=== PATIENT | female | born 1955 | race Caucasian/White ===

== ENCOUNTER 2017-07-09 08:46 | Emergency (ER) | payer MEDICAID ==
[~2017-07-09] VITALS: Ht 152.4 cm; Wt 70.0 kg
[~2017-07-09 08:46] MED LIST: ALBU2.5V13 IH; ATOR20TA65 PO; LISI-186 PO; METF10002 PO
[2017-07-09] MEDS ORDERED: ALBUTEROL (0.083%) 2.5MG/3ML NEB HHN STA (09:17)
[2017-07-09] MEDS ORDERED: METHYLPREDNISOLONE SOD SUCC 125 MG/2 ML VIAL IV STA (09:17)
[2017-07-09] MEDS ORDERED: IPRATROPIUM BROMIDE (0.02%) 0.5MG/2.5ML NEB HHN STA (09:17)
[2017-07-09] MEDS ORDERED: MAGNESIUM 1 G PREMIX 100 ML IV ONE (09:30)
[2017-07-09] MEDS ORDERED: SODIUM CHLORIDE 0.9% 1,000 ML IV ONE (09:30)
[2017-07-09] MEDS ORDERED: MAGNESIUM 2 G PREMIX 50 ML IV ONE (09:45)
[2017-07-09 10:11] LABS: CHLORIDE 105 mEq/L (98-107)
[2017-07-09 10:13] LABS: HEMATOCRIT. 34.5 % (36.0-48.0); HEMOGLOBIN. 10.9 g/dL (12.0-16.0); MEAN CORPUSCULAR HEMOGLOBIN 22.9 pg (28.0-32.0); MEAN CORPUSCULAR VOLUME 72.5 fL (81.0-99.0); MEAN PLATELET VOLUME 7.3 fl (7.4-10.4); PLATELET 431 x1000/uL (130-400); RED BLOOD CELL COUNT 4.75 mill/uL (4.2-5.4); RED CELL DISTRIBUTION WIDTH 17.9 % (11.6-14.6)
[2017-07-09 10:19] LABS: TROPONIN I < 0.02 ng/mL (0.00-0.04)
[2017-07-09] MEDS ORDERED: IPRATROPIUM/ALBUTEROL 0.5-3(2.5)MG/3ML NEB HHN ONE ×2 (10:30→12:15)
[2017-07-09 10:54] LABS: PLATELET ESTIMATE SLIGHTLY INCREASED
[2017-07-09 15:49] VITALS: BP 126/79
== END 2017-07-09 16:12 | disposition home or self-care (01) ==
LOC: ER 08:46
DX: J45.901 Unspecified asthma with (acute) exacerbation (principal); I10 Essential (primary) hypertension; E78.00 Pure hypercholesterolemia, unspecified; E11.9 Type 2 diabetes mellitus without complications
CPT/HCPCS: 36415; 71045; 80048; 83880; 84484; 85025; 93005; 94640; 96365; 96375; 99285; J2930; J3475; J7030; J7611; J7620; Z7610

== ENCOUNTER 2017-07-11 20:59 | Inpatient (IN) | payer MEDICAID ==
[~2017-07-11] VITALS: Ht 152.9 cm; Wt 84.4 kg
[~2017-07-11 20:59] MED LIST changes: +METF-416 PO; -METF10002 PO
[2017-07-12] MEDS ORDERED: IPRATROPIUM BROMIDE (0.02%) 0.5MG/2.5ML NEB HHN STA (00:02)
[2017-07-12] MEDS ORDERED: ALBUTEROL (0.083%) 2.5MG/3ML NEB HHN STA (00:02)
[2017-07-12] MEDS ORDERED: METHYLPREDNISOLONE SOD SUCC 125 MG/2 ML VIAL IV STA (00:02)
[2017-07-12] MEDS ORDERED: MAGNESIUM 2 G PREMIX 50 ML IV ONE (00:15)
[2017-07-12 00:41] LABS: HEMATOCRIT. 32.5 % (36.0-48.0); HEMOGLOBIN. 10.3 g/dL (12.0-16.0); MEAN CORPUSCULAR HEMOGLOBIN 22.8 pg (28.0-32.0); MEAN CORPUSCULAR VOLUME 71.8 fL (81.0-99.0); MEAN PLATELET VOLUME 7.5 fl (7.4-10.4); PLATELET 412 x1000/uL (130-400); RED BLOOD CELL COUNT 4.53 mill/uL (4.2-5.4); RED CELL DISTRIBUTION WIDTH 18.1 % (11.6-14.6)
[2017-07-12 00:54] LABS: CHLORIDE 104 mEq/L (98-107)
[2017-07-12 01:31] LABS: PLATELET ESTIMATE NORMAL
[2017-07-12] MEDS ORDERED: SODIUM CHLORIDE 0.9% 1,000 ML IV SCH (02:51)
[2017-07-12 08:40] VITALS: BP 128/87
[2017-07-12] MEDS ORDERED: ACETAMINOPHEN 325MG TABLET PO PRN (10:00)
[2017-07-12] MEDS ORDERED: IPRATROPIUM/ALBUTEROL 0.5-3(2.5)MG/3ML NEB INH PRN (10:00)
[2017-07-12] MEDS ORDERED: HYDROCODONE/ACETAMINOPHEN 5/325MG TABLET PO PRN (10:00)
[2017-07-12] MEDS ORDERED: ONDANSETRON HCL 4MG/2ML INJ IV PRN (10:00)
[2017-07-12] MEDS ORDERED: DIPHENHYDRAMINE 50MG/ML VIAL IV PRN (10:00)
[2017-07-12] MEDS ORDERED: CLONIDINE 0.1MG TABLET PO PRN (10:00)
[2017-07-12] MEDS: METHYLPREDNISOLONE SOD SUCC 40 MG/ML VIAL IV SCH ×2 (11:18→17:04)
[2017-07-12] MEDS ORDERED: ALBU18HF2 IH (11:35)
[2017-07-12] MEDS ORDERED: ALBUTEROL 6.7GM HFA INHALER ORI PRN (11:45)
[2017-07-12] MEDS ORDERED: DEXTROSE 50% WATER 50ML SYRINGE IV PRN (11:45)
[2017-07-12] MEDS ORDERED: ALBUTEROL (0.083%) 2.5MG/3ML NEB HHN PRN (11:45)
[2017-07-12] MEDS: BLOOD SUGAR DIAGNOSTIC STRIP TEST SCH ×3 (12:40→21:08)
[2017-07-12] MEDS: LISINOPRIL 5MG TABLET PO SCH (12:44)
[2017-07-12] MEDS: INSULIN LISPRO 100 UNITS/ML SUBCUT SCH ×3 (12:45→21:13)
[2017-07-12 12:48] VITALS: BP 146/91
[2017-07-12] MEDS: IPRATROPIUM/ALBUTEROL 0.5-3(2.5)MG/3ML NEB INH SCH ×3 (14:30→23:51)
[2017-07-12 16:00] VITALS: BP 109/65
[2017-07-12] MEDS: METFORMIN HCL 500MG TABLET PO SCH (17:06)
[2017-07-12] MEDS ORDERED: ATORVASTATIN CALCIUM 20MG TABLET PO SCH (21:00)
[2017-07-13] MEDS: METHYLPREDNISOLONE SOD SUCC 40 MG/ML VIAL IV SCH ×3 (02:02→21:08)
[2017-07-13 02:10] VITALS: BP 95/32
[2017-07-13] MEDS: IPRATROPIUM/ALBUTEROL 0.5-3(2.5)MG/3ML NEB INH SCH ×5 (03:45→21:49)
[2017-07-13 06:54] VITALS: BP 110/97
[2017-07-13 07:13] LABS: BASOPHILS % 0.1 % (0.0-2.0); HEMATOCRIT. 30.6 % (36.0-48.0); HEMOGLOBIN. 9.7 g/dL (12.0-16.0); LYMPHOCYTES % 8.5 % (20.0-50.0); MEAN CORPUSCULAR HEMOGLOBIN 22.7 pg (28.0-32.0); MEAN CORPUSCULAR VOLUME 71.8 fL (81.0-99.0); MONOCYTES % 6.2 % (2.0-8.0); NEUTROPHILS % 85.2 % (40.0-76.0); PLATELET 418 x1000/uL (130-400); RED BLOOD CELL COUNT 4.26 mill/uL (4.2-5.4); RED CELL DISTRIBUTION WIDTH 18.1 % (11.6-14.6)
[2017-07-13 07:37] LABS: CHLORIDE 107 mEq/L (98-107); HDL CHOLESTEROL 44 mg/dL (40-59); LDL CHOLESTEROL 119 mg/dL (5-100)
[2017-07-13] MEDS: BLOOD SUGAR DIAGNOSTIC STRIP TEST SCH ×4 (07:40→21:09)
[2017-07-13] MEDS: METFORMIN HCL 500MG TABLET PO SCH ×2 (08:34→17:23)
[2017-07-13] MEDS: LISINOPRIL 5MG TABLET PO SCH (08:35)
[2017-07-13] MEDS: INSULIN LISPRO 100 UNITS/ML SUBCUT SCH ×4 (08:37→21:09)
[2017-07-13 12:00] VITALS: BP 124/71
[2017-07-13] MEDS: BUDESONIDE 0.5MG/2ML NEB HHN SCH (12:32)
[2017-07-13] MEDS: FAMOTIDINE 20MG TABLET PO SCH ×2 (12:45→21:08)
[2017-07-13 16:00] VITALS: BP 130/75
[2017-07-13] MEDS: MONTELUKAST SODIUM 10MG TABLET PO SCH (17:23)
[2017-07-13 17:29] LABS: CLARITY URINE CLEAR (CLEAR); COLOR URINE YELLOW (YELLOW); KETONES URINE NEGATIVE (NEGATIVE); LEUKOCYTE ESTERASE URINE NEGATIVE (NEGATIVE); NITRITE URINE NEGATIVE (NEGATIVE); OCCULT BLOOD URINE NEGATIVE (NEGATIVE); PROTEIN URINE NEGATIVE (NEGATIVE); SPECIFIC GRAVITY URINE 1.019 (1.005-1.030); UROBILINOGEN URINE 0.2 E.U./dL (0.2-1.0)
[2017-07-13 17:54] LABS: *AMPHETAMINES SCREEN URINE NEGATIVE (NEGATIVE); *BARBITURATES SCREEN URINE NEGATIVE (NEGATIVE); *BENZODIAZEPINES SCREEN URINE NEGATIVE (NEGATIVE); *COCAINE SCREEN URINE NEGATIVE (NEGATIVE); CANNABINOID URINE SCREEN NEGATIVE (NEGATIVE); METHADONE URINE SCREEN NEGATIVE (NEGATIVE); OPIATES URINE SCREEN NEGATIVE (NEGATIVE); PHENCYCLIDINE URINE SCREEN NEGATIVE (NEGATIVE)
[2017-07-13 20:00] VITALS: BP 144/80
[2017-07-13] MEDS: ATORVASTATIN CALCIUM 10MG TABLET PO SCH (21:08)
[2017-07-14] VITALS: BP 98/45
[2017-07-14] MEDS: BUDESONIDE 0.5MG/2ML NEB HHN SCH ×3 (01:49→20:15)
[2017-07-14] MEDS: IPRATROPIUM/ALBUTEROL 0.5-3(2.5)MG/3ML NEB INH SCH ×5 (01:49→20:16)
[2017-07-14 04:00] VITALS: BP 107/56
[2017-07-14 07:02] LABS: HEMATOCRIT. 29.9 % (36.0-48.0); HEMOGLOBIN. 9.6 g/dL (12.0-16.0); MEAN CORPUSCULAR HEMOGLOBIN 23.2 pg (28.0-32.0); MEAN CORPUSCULAR VOLUME 72.4 fL (81.0-99.0); MEAN PLATELET VOLUME 8.1 fl (7.4-10.4); PLATELET 398 x1000/uL (130-400); RED BLOOD CELL COUNT 4.12 mill/uL (4.2-5.4); RED CELL DISTRIBUTION WIDTH 18.1 % (11.6-14.6)
[2017-07-14] MEDS: BLOOD SUGAR DIAGNOSTIC STRIP TEST SCH ×4 (07:40→21:02)
[2017-07-14 08:00] VITALS: BP 118/61
[2017-07-14 08:11] LABS: CHLORIDE 103 mEq/L (98-107)
[2017-07-14] MEDS: INSULIN LISPRO 100 UNITS/ML SUBCUT SCH ×4 (08:27→21:02)
[2017-07-14] MEDS: METFORMIN HCL 500MG TABLET PO SCH ×2 (08:27→18:05)
[2017-07-14] MEDS: FAMOTIDINE 20MG TABLET PO SCH ×2 (08:27→21:01)
[2017-07-14] MEDS: METHYLPREDNISOLONE SOD SUCC 40 MG/ML VIAL IV SCH (08:28)
[2017-07-14] MEDS: LISINOPRIL 5MG TABLET PO SCH (08:28)
[2017-07-14] MEDS: INSULIN GLARGINE UD 100 UNITS/ML SYR SUBCUT SCH (10:02)
[2017-07-14 12:00] VITALS: BP 142/82
[2017-07-14 14:03] LABS: PLATELET ESTIMATE NORMAL
[2017-07-14] MEDS: METHYLPREDNISOLONE SOD SUCC 125 MG/2 ML VIAL IV SCH ×2 (14:50→21:03)
[2017-07-14 16:00] VITALS: BP 92/48
[2017-07-14] MEDS: MONTELUKAST SODIUM 10MG TABLET PO SCH (18:05)
[2017-07-14] MEDS: THEOPHYLLINE ANHYDROUS 80 MG/15 ML 120ML PO SCH (18:06)
[2017-07-14 20:00] VITALS: BP 130/69
[2017-07-14] MEDS: ATORVASTATIN CALCIUM 10MG TABLET PO SCH (21:01)
[2017-07-15] VITALS: BP 123/83
[2017-07-15] MEDS: THEOPHYLLINE ANHYDROUS 80 MG/15 ML 120ML PO SCH ×4 (00:27→17:00)
[2017-07-15] MEDS: IPRATROPIUM/ALBUTEROL 0.5-3(2.5)MG/3ML NEB INH SCH ×6 (00:32→20:18)
[2017-07-15 04:00] VITALS: BP 155/73
[2017-07-15] MEDS: METHYLPREDNISOLONE SOD SUCC 125 MG/2 ML VIAL IV SCH (05:51)
[2017-07-15] MEDS: BLOOD SUGAR DIAGNOSTIC STRIP TEST SCH ×4 (07:40→21:11)
[2017-07-15 08:00] VITALS: BP 135/75
[2017-07-15] MEDS: INSULIN LISPRO 100 UNITS/ML SUBCUT SCH ×4 (08:59→21:00)
[2017-07-15] MEDS: METFORMIN HCL 500MG TABLET PO SCH ×2 (09:00→17:26)
[2017-07-15] MEDS: FAMOTIDINE 20MG TABLET PO SCH ×2 (09:00→21:10)
[2017-07-15] MEDS: LISINOPRIL 5MG TABLET PO SCH (09:00)
[2017-07-15] MEDS: BUDESONIDE 0.5MG/2ML NEB HHN SCH ×2 (10:15→20:18)
[2017-07-15 12:00] VITALS: BP 107/62
[2017-07-15] MEDS: INSULIN GLARGINE UD 100 UNITS/ML SYR SUBCUT SCH (12:33)
[2017-07-15 16:00] VITALS: BP 119/53
[2017-07-15] MEDS: MONTELUKAST SODIUM 10MG TABLET PO SCH (17:26)
[2017-07-15 20:00] VITALS: BP 146/77
[2017-07-15] MEDS: ATORVASTATIN CALCIUM 10MG TABLET PO SCH (21:10)
[2017-07-16] VITALS: BP 107/51
[2017-07-16] MEDS: IPRATROPIUM/ALBUTEROL 0.5-3(2.5)MG/3ML NEB INH SCH ×6 (00:18→20:47)
[2017-07-16 04:00] VITALS: BP 112/64
[2017-07-16] MEDS: BLOOD SUGAR DIAGNOSTIC STRIP TEST SCH ×4 (07:03→20:59)
[2017-07-16] MEDS: INSULIN LISPRO 100 UNITS/ML SUBCUT SCH ×4 (07:11→21:00)
[2017-07-16 08:00] VITALS: BP 97/62
[2017-07-16] MEDS: BUDESONIDE 0.5MG/2ML NEB HHN SCH (08:03)
[2017-07-16] MEDS: FAMOTIDINE 20MG TABLET PO SCH ×2 (08:05→20:59)
[2017-07-16] MEDS: METFORMIN HCL 500MG TABLET PO SCH ×2 (08:05→17:20)
[2017-07-16] MEDS: LISINOPRIL 5MG TABLET PO SCH (08:05)
[2017-07-16] MEDS: THEOPHYLLINE ANHYDROUS 80 MG/15 ML 120ML PO SCH (08:34)
[2017-07-16 08:41] LABS: BASOPHILS % 0.1 % (0.0-2.0); EOSINOPHILS % 0.1 % (0.0-5.0); HEMOGLOBIN. 9.7 g/dL (12.0-16.0); LYMPHOCYTES % 14.2 % (20.0-50.0); MEAN CORPUSCULAR HEMOGLOBIN 22.3 pg (28.0-32.0); MEAN CORPUSCULAR VOLUME 71.7 fL (81.0-99.0); MEAN PLATELET VOLUME 7.5 fl (7.4-10.4); MONOCYTES % 11.1 % (2.0-8.0); NEUTROPHILS % 74.5 % (40.0-76.0); PLATELET 405 x1000/uL (130-400); RED BLOOD CELL COUNT 4.32 mill/uL (4.2-5.4); RED CELL DISTRIBUTION WIDTH 17.9 % (11.6-14.6)
[2017-07-16 09:08] LABS: CHLORIDE 101 mEq/L (98-107); THEOPHYLLINE 2.3 ug/mL (10-20)
[2017-07-16 09:33] LABS: BG BASE EXCESS -0.5 mmol/L (-2.0-2.0); BG CARBOXYHEMOGLOBIN 0.1 % (0.5-1.5); BG DEOXYHEMOGLOBIN 7.3 % (0.0-5.0); BG FRACTION INSPIRED OXYGEN 21; BG HCO3 ACT 23.6 mmol/L (22.0-26.0); BG METHEMOGLOBIN 0.3 % (0.0-1.5); BG OXYGEN SATURATION 92.7 % (92.0-98.5); BG OXYHEMOGLOBIN 92.3 % (94.0-97.0); BG PCO2 36.7 mmHg (35.0-45.0); BG PH 7.426 (7.350-7.450); BG PO2 69.9 mmHg (75.0-100.0); BG SAMPLE SITE RIGHT RADIAL; BG VENT MODE ROOM AIR
[2017-07-16] MEDS: INSULIN GLARGINE UD 100 UNITS/ML SYR SUBCUT SCH (10:03)
[2017-07-16 12:00] VITALS: BP 137/75
[2017-07-16 16:00] VITALS: BP 104/48
[2017-07-16] MEDS: MONTELUKAST SODIUM 10MG TABLET PO SCH (17:19)
[2017-07-16 20:00] VITALS: BP 97/44
[2017-07-16] MEDS: ATORVASTATIN CALCIUM 10MG TABLET PO SCH (20:59)
[2017-07-17] VITALS: BP 110/64
[2017-07-17] MEDS: IPRATROPIUM/ALBUTEROL 0.5-3(2.5)MG/3ML NEB INH SCH ×6 (00:33→21:07)
[2017-07-17 04:00] VITALS: BP 126/62
[2017-07-17] MEDS: BLOOD SUGAR DIAGNOSTIC STRIP TEST SCH ×4 (05:48→20:53)
[2017-07-17 07:28] LABS: HEMATOCRIT. 32.6 % (36.0-48.0); HEMOGLOBIN. 10.4 g/dL (12.0-16.0); MEAN CORPUSCULAR HEMOGLOBIN 22.9 pg (28.0-32.0); MEAN CORPUSCULAR VOLUME 71.5 fL (81.0-99.0); MEAN PLATELET VOLUME 7.5 fl (7.4-10.4); PLATELET 397 x1000/uL (130-400); RED BLOOD CELL COUNT 4.55 mill/uL (4.2-5.4); RED CELL DISTRIBUTION WIDTH 18.1 % (11.6-14.6)
[2017-07-17 07:44] LABS: CHLORIDE 101 mEq/L (98-107)
[2017-07-17 08:00] VITALS: BP 115/57
[2017-07-17] MEDS: FAMOTIDINE 20MG TABLET PO SCH ×2 (08:07→20:53)
[2017-07-17] MEDS: METFORMIN HCL 500MG TABLET PO SCH ×2 (08:07→17:11)
[2017-07-17] MEDS: INSULIN LISPRO 100 UNITS/ML SUBCUT SCH ×4 (08:08→21:00)
[2017-07-17] MEDS: LISINOPRIL 5MG TABLET PO SCH (08:08)
[2017-07-17] MEDS: INSULIN GLARGINE UD 100 UNITS/ML SYR SUBCUT SCH (10:34)
[2017-07-17 12:00] VITALS: BP 125/56
[2017-07-17] MEDS ORDERED: POTASSIUM CHLORIDE 20MEQ TABLET SR PO SCH (12:45)
[2017-07-17] MEDS ORDERED: TERBUTALINE SULFATE 1MG/ML VIAL SUBCUT SCH (13:15)
[2017-07-17 15:55] LABS: NUCLEATED RED BLOOD CELLS 1 /100 WBC; PLATELET ESTIMATE NORMAL
[2017-07-17 16:00] VITALS: BP 119/61
[2017-07-17] MEDS: MONTELUKAST SODIUM 10MG TABLET PO SCH (17:11)
[2017-07-17 20:00] VITALS: BP 122/65
[2017-07-17] MEDS: ATORVASTATIN CALCIUM 10MG TABLET PO SCH (20:52)
[2017-07-17] MEDS: GUAIFENESIN 600MG ER TABLET PO SCH (20:52)
[2017-07-18] VITALS (7 sets, daily range): BP systolic 90–118; BP diastolic 48–62
[2017-07-18] MEDS: IPRATROPIUM/ALBUTEROL 0.5-3(2.5)MG/3ML NEB INH SCH ×5 (00:54→15:45)
[2017-07-18] MEDS: BLOOD SUGAR DIAGNOSTIC STRIP TEST SCH ×3 (05:38→17:12)
[2017-07-18] MEDS: INSULIN LISPRO 100 UNITS/ML SUBCUT SCH ×3 (08:10→17:12)
[2017-07-18] MEDS: LISINOPRIL 5MG TABLET PO SCH (08:30)
[2017-07-18] MEDS: METFORMIN HCL 500MG TABLET PO SCH ×2 (08:30→17:04)
[2017-07-18] MEDS: GUAIFENESIN 600MG ER TABLET PO SCH (08:30)
[2017-07-18] MEDS: FAMOTIDINE 20MG TABLET PO SCH (08:30)
[2017-07-18] MEDS: INSULIN GLARGINE UD 100 UNITS/ML SYR SUBCUT SCH (10:59)
[2017-07-18] MEDS: MONTELUKAST SODIUM 10MG TABLET PO SCH (17:03)
== END 2017-07-18 18:50 | disposition home or self-care (01) | DRG 133 ==
LOC: ER 20:59 → 7WST 07-12 02:52 → EDBEDREQTM 07-12 04:02 → EDBEDREQ 07-12 04:02 → ENRESERV 07-12 06:59
PROVIDERS: ADMIT Internal Medicine; ATTEND Internal Medicine
DX: J96.00 Acute respiratory failure, unspecified whether with hypoxia or hypercapnia (principal); J45.902 Unspecified asthma with status asthmaticus; E46 Unspecified protein-calorie malnutrition; R65.10 Systemic inflammatory response syndrome (SIRS) of non-infectious origin without acute organ dysfunction; E11.65 Type 2 diabetes mellitus with hyperglycemia; E86.0 Dehydration; E66.2 Morbid (severe) obesity with alveolar hypoventilation; E83.51 Hypocalcemia; D64.9 Anemia, unspecified; I10 Essential (primary) hypertension; E78.5 Hyperlipidemia, unspecified; E87.6 Hypokalemia; Z79.84 Long term (current) use of oral hypoglycemic drugs; Z79.899 Other long term (current) drug therapy; Z98.49 Cataract extraction status, unspecified eye; Z68.36 Body mass index [BMI] 36.0-36.9, adult
CPT/HCPCS: 36415; 36600; 71045; 80048; 80061; 80198; 80305; 81001; 82375; 82805; 82962; 83036; 83880; 84484; 87070; 87804; 93005; 94640; 94644; 96361; 96365; 96366; 96375; 97161; 99285; J1815; J2405; J2920; J2930; J3105; J3475; J7030; J7611; J7620; J7626